=== PATIENT | female | born 1965 ===

== ENCOUNTER 2024-07-13 14:51 | Emergency (ER) | payer OTHER ==
[~2024-07-13] VITALS: Ht 167.6 cm; Wt 102.3 kg
[2024-07-13 14:54] VITALS: BP 117/80; TEMP 97.2
[2024-07-13] MEDS ORDERED: NS 1,000 ML IV ONE (15:30)
[2024-07-13] MEDS ORDERED: fentaNYL 50 MCG/ML 2 ML VIAL IV ONE (15:30)
[2024-07-13 15:35] LABS: BASO # 0.1 K/mm3 (0.0-0.2); BASO % 0.9 % (0.0-2.0); EOS # 0.2 K/mm3 (0.0-0.7); EOS % 2.2 % (0.0-4.0); GRAN # 4.4 K/mm3 (1.4-6.5); GRAN % 54.6 % (42.2-75.2); HEMOGLOBIN 14.2 g/dl (12.5-16.0); LYMPH # 2.9 K/mm3 (1.2-3.4); LYMPH % 35.7 % (20.0-51.0); MEAN CELL VOLUME 88 fl (80.0-100.0); MEAN CORPUSCULAR HEMOGLOBIN 28 pg (27-31); MEAN CORPUSCULAR HGB CONC 32 g/dl (33.0-37.0); MEAN PLATELET VOLUME 10.8 fl (7.4-10.4); MONO # 0.5 K/mm3 (0.1-0.6); MONO % 6.2 % (1.7-9.3); PLATELET COUNT 296 K/mm3 (130-400)
[2024-07-13 15:53] LABS: ALBUMIN 3.9 g/dL (3.5-5.0); BILIRUBIN,TOTAL 0.9 mg/dL (0.2-1.2); CALCIUM 10.6 mg/dL (8.4-10.2); CREATININE, serum 1.18 mg/dL (0.57-1.11); POTASSIUM 3.9 mEq/L (3.5-4.5); TOTAL PROTEIN 6.9 g/dl (6.2-8.1)
[2024-07-13] MEDS ORDERED: NORCO 325 MG-51 TAB PO (17:16)
[2024-07-13 17:23] VITALS: PULSE 77
== END 2024-07-13 17:23 | disposition home or self-care (01) ==
LOC: COL.ER 14:51
PROVIDERS: Family Medicine
DX: S29.012A Strain of muscle and tendon of back wall of thorax, initial encounter (principal); X50.9XXA Other and unspecified overexertion or strenuous movements or postures, initial encounter; Y93.01 Activity, walking, marching and hiking
CPT/HCPCS: J3010; J7030